=== PATIENT | female | born 1980 | race Caucasian/White ===

== ENCOUNTER 2024-09-11 09:31 | Emergency (ER) | payer OTHER, SELFPAY ==
[2024-09-11 09:40] VITALS: BP 157/89; PULSE 90; TEMP 36.9; O2SAT 99; BMI 34.4
--- NOTE | 2024-09-11 09:45 | ED_ITS ---
HPI HPI - General Adult General Chief complaint: Abdominal Pain Stated complaint: ABDOMINAL PAIN NAUSEA Time Seen by Provider: 09/11/24 09:35 Source: patient Mode of arrival: walk-in Limitations: no limitations History of Present Illness HPI narrative: Patient presents with chief complaint of epigastric pain that she noticed last night. She states when she pushes over the epigastrium she has pain shooting down both sides of the abdomen to the lower quadrants and has nausea. She denies right upper quadrant pain, back pain or shoulder pain. She is 1 para 1. LMP was a week ago. She has had ovarian cystectomy, unilateral oophorectomy and salpingectomy during her . Related Data Previous Rx's ?Medication ?Instructions ?Recorded pantoprazole 40 mg tablet,delayed 40 mg PO DAILY #30 tabs 09/11/24 release (Protonix) Allergies Allergy/AdvReac Type Severity Reaction Status Date / Time cefaclor (From Ceclor) AdvReac Mild Rash Verified 09/11/24 09:40 Opioid HPI Opioid Management Most Recent Opioid Data: No Data to Display Review of Systems ROS Status of ROS 10 or more systems reviewed and unremark able except as noted in history and below Exam Narrative Exam Narrative: Mildly obese in appearance. Afebrile and nondistressed. Vital signs are stable and are as documented. HEENT exam is normal to inspection. There is no pallor or icterus. Neck is supple. Lung sounds are clear to auscultation bilaterally with good air entry. Heart has regular rate and rhythm. Abdomen is protuberant and soft. There is diastasis of the recti. Patient is mildly tender over the epigastrium. She has a negative Boudreaux sign and negative McBurney sign. There is no organomegaly or fluid wave. Lower extremities are nontender and she does not have unilateral leg swelling. Speech and mentation are clear and intact. There is no facial asymmetry. She moves all extremities actively. Constitutional Vital Signs, click to edit/add: Last Vital Signs Temp 98.4 F 09/11/24 09:40 Pulse 90 09/11/24 09:40 Resp 18 09/11/24 09:40 BP 157/89 H 09/11/24 09:40 Pulse Ox 99 09/11/24 09:40 O2 Del Method Room Air 09/11/24 09:40 Course Vital Signs Vital signs: Vital Signs Temperature 98.4 F 09/11/24 09:40 Pulse Rate 90 09/11/24 09:40 Respiratory Rate 18 09/11/24 09:40 Blood Pressure 157/89 H 09/11/24 09:40 Pulse Oximetry 99 09/11/24 09:40 Oxygen Delivery Method Room Air 09/11/24 09:40 Temperature 98.4 F 09/11/24 09:40 Pulse Rate 90 09/11/24 09:40 Respiratory Rate 18 09/11/24 09:40 Blood Pressure 157/89 H 09/11/24 09:40 Pulse Oximetry 99 09/11/24 09:40 Oxygen Delivery Method Room Air 09/11/24 09:40 Medical Decision Making MDM Narrative Medical decision making narrative: Patient presents with epigastric pain. She has been consuming alcohol rather heavily recently. Blood work was unremarkable and liver function normal. CT scan of the abdomen pelvis revealed normal gallbladder and spleen. Pancreas was normal. There is no evidence of obstruction or perforation. No acute abdominal findings were reported. My impression is that she has gastritis and is placed on Protonix. She is referred to outpatient PCP follow-up within a week's time and is to abstain from alcohol. She is to return for worsening symptoms. Lab Data Labs: Lab Results 09/11/24 Range/Units 09:58 WBC 9.4 (4.0-11.0) 10^3/uL RBC 4.70 (4.20-5.40) 10^6/uL Hgb 14.9 (12.0-16.0) g/dL Hct 43.0 (36.0-48.0) % MCV 91.5 (81.0-99.0) fL MCH 31.7 (26.7-34.0) pg MCHC 34.7 (29.9-35.2) g/dL RDW 13.2 (11.0-15.0) % Plt Count 269 (150-450) 10^3/uL MPV 12.1 (9.5-13.5) fL Neut % (Auto) 68.0 (43.0-75.0) % Lymph % (Auto) 23.1 (20.5-60.0) % [place] % (Auto) 5.0 (1.7-12.0) % Eos % (Auto) 3.0 (0.9-7.0) % Baso % (Auto) 0.7 (0.2-2.0) % Neut # (Auto) 6.4 (1.4-6.5) 10^3/uL Lymph # (Auto) 2.2 (1.2-3.8) 10^3/uL [place] # (Auto) 0.5 (0.3-0.8) 10^3/uL Eos # (Auto) 0.3 (0.0-0.7) 10^3/uL Baso # (Auto) 0.1 (0.0-0.1) 10^3/uL Abs Immat Gran (auto) 0.02 (0.00-0.03) 10^3/uL Imm/Tot Granulo (auto) 0.2 (0.0-0.5) % Sodium 138 (136-145) mmol/L Potassium 4.0 (3.5-5.1) mmol/L Chloride 102 (98-107) mmol/L Carbon Dioxide 26.9 (21.0-32.0) mmol/L Anion Gap 13.1 BUN 10.0 (7.0-18.0) mg/dL Creatinine 0.91 (0.55-1.02) mg/dL Est GFR ( Amer) >60 (>=60 mL/min/1.73m^2) Est GFR (Non-Af Amer) >60 (>=60 mL/min/1.73m^2) BUN/Creatinine Ratio 11.0 Glucose 96 (74-106) mg/dL Calcium 9.0 (8.5-10.1) mg/dL Total Bilirubin 0.4 (0.2-1.0) mg/dL AST 18 (15-37) U/L ALT 34 (14-59) U/L Alkaline Phosphatase 95 (46-116) U/L Total Protein 7.9 (6.4-8.2) g/dL Albumin 4.1 (3.4-5.0) g/dL Globulin 3.8 g/dL Albumin/Globulin Ratio 1.1 Lipase 20.0 (16.0-77.0) U/L Serum HCG, Qual Negative (NEGATIVE) Discharge Plan Discharge Chief Complaint: Abdominal Pain Clinical Impression: Epigastric abdominal pain Patient Disposition: Home, Self-Care Time of Disposition Decision: 12:04 Condition: Good Mode of Transportation: Private Vehicle Prescriptions / Home Meds: New pantoprazole [Protonix] 40 mg tablet,delayed release (DR/EC) 40 mg PO DAILY Qty: 30 0RF Print Language: Nepali Instructions: Epigastric Pain (ED) Additional Instructions: Abstain from alcohol. Follow-up with [facility] later this week. Return for worsening symptoms. Referrals: [facility] [Primary Care Provider] - 1 week
[2024-09-11 10:10] LABS: Basophils Absolute Auto 0.1 10^3/uL (0.0-0.1); Basophils Percent Auto 0.7 % (0.2-2.0); Eosinophils Absolute Auto 0.3 10^3/uL (0.0-0.7); Hemoglobin 14.9 g/dL (12.0-16.0); Immature Granulocytes Abs Auto 0.02 10^3/uL (0.00-0.03); Immature Granulocytes Pct Auto 0.2 % (0.0-0.5); Lymphocytes Absolute Auto 2.2 10^3/uL (1.2-3.8); Lymphocytes Percent Auto 23.1 % (20.5-60.0); Mean Corpuscular HGB Conc 34.7 g/dL (29.9-35.2); Mean Corpuscular Hemoglobin 31.7 pg (26.7-34.0); Mean Corpuscular Volume 91.5 fL (81.0-99.0); Mean Platelet Volume 12.1 fL (9.5-13.5); Monocytes Absolute Auto 0.5 10^3/uL (0.3-0.8); Neutrophils Absolute Auto 6.4 10^3/uL (1.4-6.5); Platelet Count 269 10^3/uL (150-450); Red Cell Distribution Width 13.2 % (11.0-15.0); White Blood Count 9.4 10^3/uL (4.0-11.0)
[2024-09-11 10:25] LABS: HCG Qualitative NEGATIVE (NEGATIVE); Internal Control Within Normal Limits
[2024-09-11 10:28] LABS: Alanine Aminotransferase 34 U/L (14-59); Albumin Globulin Ratio 1.1; Albumin Level 4.1 g/dL (3.4-5.0); Alkaline Phosphatase 95 U/L (46-116); Anion Gap 13.1; Aspartate Amino Transferase 18 U/L (15-37); Bilirubin Total 0.4 mg/dL (0.2-1.0); Carbon Dioxide 26.9 mmol/L (21.0-32.0); Chloride 102 mmol/L (98-107); Estimated GFR (African America >60 (>=60 mL/min/1.73m^2); Estimated GFR (Non-African Ame >60 (>=60 mL/min/1.73m^2); Globulin 3.8 g/dL; Glucose 96 mg/dL (74-106); Sodium 138 mmol/L (136-145); Total Protein 7.9 g/dL (6.4-8.2)
[2024-09-11 13:17] LABS: Bilirubin Urine NEGATIVE (NEGATIVE); Blood Urine NEGATIVE (NEGATIVE); Clarity Urine CLEAR (CLEAR); Color Urine LT. YELLOW (YELLOW); Glucose Urine UA NEGATIVE (NEGATIVE); Ketones Urine NEGATIVE (NEGATIVE); Leukocyte Esterase Urine NEGATIVE (NEGATIVE); Nitrite Urine NEGATIVE (NEGATIVE); Protein Urine NEGATIVE (NEG/TRACE); Urine Microscopic Indicated NO; Urobilinogen Urine 0.2 EU/dL (0.2-1.0)
== END 2024-09-11 12:18 | disposition home or self-care (01) ==
PROVIDERS: Emergency Provider Emergency Medicine
DX: R10.13 Epigastric pain (principal); R11.0 Nausea; Z90.721 Acquired absence of ovaries, unilateral; Z90.79 Acquired absence of other genital organ(s)
CPT/HCPCS: 36415; 74176; 80053; 81003; 83690; 84703; 85025; 99284